=== PATIENT | male | born 1990 | race Caucasian/White ===

== ENCOUNTER 2018-12-29 06:04 | Day surgery (SDC) | payer OTHER ==
[~2018-12-29] VITALS: Ht 167.6 cm; Wt 108.9 kg
[~2018-12-29 06:04] MED LIST: LEXAPRO20 MG PO; PRILOSEC OTC20 MG PO
--- NOTE | 2018-12-29 07:53 | NUR ---
12/29/18 Juanjo3 Destinee Francis [id number] PATIENT ARRIVES TO PACU AWAKE. RESP EVEN AND UNLABORED, ROOM AIR SATS >95%. DENIES PAIN OR NAUSEA. [id number] PATIENT SITTING UP DRINKING APPLE JUICE. CONTINUES TO DENY PAIN.
--- NOTE | 2018-12-29 08:01 | NUR ---
PT IS AN INMATE AT [employer] AT HIS SIDE. HE IS ALERT, ORIENTED AND VERY FRIENDLY. PT FEELS HE IS INFORMED, READY TO GET THE USE OF HIS HAND BACK PT REQUESTED PRAYER, WILL FOLLOW NEEDED
--- NOTE | 2018-12-29 17:45 | OR ---
[facility] [address], [place] [address] Signed DATE OF OPERATION: 12/29/2018 SURGEON: Kumar Thompson MD PREOPERATIVE DIAGNOSIS: Carpal tunnel syndrome, right. POSTOPERATIVE DIAGNOSIS: Carpal tunnel syndrome, right. PROCEDURE: Carpal tunnel release, right. ANESTHESIA: Bruce block with sedation. SPECIMENS AND COMPLICATIONS: There were no specimens or complications. TOURNIQUET TIME: About 20 minutes. WHAT WAS DONE: The patient was taken to the operating room. After anesthesia was induced and the patient sedated, the right upper extremity was positioned, prepped and draped in a routine sterile fashion. A volar incision was made beginning at the distal wrist flexion crease extending distally for about 2 cm in line with the anterior mid axial line of the 4th ray. Skin was divided sharply. Subcutaneous tissue was bluntly spread. The transverse volar carpal ligament was identified and released under direct vision. We then used a Ragnell-Zafar retractor to elevate the distal flap and completed the decompression under direct vision. We then used the Ragnell-Zafar under the proximal flap and released the distal 3 cm of the antebrachial fascia. At this point, we appeared to have a complete release of a severely compromised median nerve. The wound was gently irrigated and closed in a standard fashion. A sterile dressing was applied. The patient was awakened and taken to the recovery room where he arrived in stable condition. Counts were correct and antibiotic protocols were followed. Electronically Signed By: KUMAR THOMPSON MD 12/29/18 1745 PATIENT NAME: ELIS BAKER OPERATIVE REPORT DATE OF : [birth year] REPORT #: [id number] PHYSICIAN: KUMAR THOMPSON MD PCP: MARILU OCRTES MD REPORT IS CONFIDENTIAL AND NOT TO BE RELEASED WITHOUT AUTHORIZATION [address] [address] Signed Kumar Thompson MD WFB/MODL /[id number] Copies: ~ Electronically Signed By: KUMAR THOMPSON MD 12/29/18 1745 PATIENT NAME: ELIS BAKER OPERATIVE REPORT DATE OF : [birth year] REPORT #: [id number] PHYSICIAN: KUMAR THOMPSON MD PCP: MARILU CORTES MD REPORT IS CONFIDENTIAL AND NOT TO BE RELEASED WITHOUT AUTHORIZATION
== END 2018-12-29 08:10 | disposition home or self-care (01) ==
LOC: DS 06:04 → OPS 06:04 → DS 06:45 → OPS 08:10
PROVIDERS: Orthopaedic Surgery
PROC: 01N50ZZ Release Median Nerve, Open Approach (ICD-10-PCS; principal; 2018-12-29 06:45)
DX: G56.03 Carpal tunnel syndrome, bilateral upper limbs (principal); E66.9 Obesity, unspecified; Z68.38 Body mass index [BMI] 38.0-38.9, adult; Z79.899 Other long term (current) drug therapy
CPT/HCPCS: J0690; J1885; J2250; J2704; J7120